=== PATIENT | female | born 1985 | race Caucasian/White ===

== ENCOUNTER 2024-02-04 18:33 | Emergency (ER) | payer MEDICAID ==
[2024-02-04] MEDS: Ketorolac 30 MG/ML SDV IVPUSH ONE (19:09)
[2024-02-04] MEDS: Sodium Chloride 0.9% 500 ML IV SCH (19:09)
== END 2024-02-04 20:24 | disposition home or self-care (01) ==
LOC: MW.ED 18:33
DX: S16.1XXA Strain of muscle, fascia and tendon at neck level, initial encounter (principal); V49.50XA Passenger injured in collision with unspecified motor vehicles in traffic accident, initial encounter; Y92.410 Unspecified street and highway as the place of occurrence of the external cause
CPT/HCPCS: 71045; 96361; 96374; 99284; J1885; J7040